=== PATIENT | female | born 1945 | race Caucasian/White ===

== ENCOUNTER → 2023-07-27 07:24 | Outpatient (REF) | payer MEDICARE, OTHER, SELFPAY | LOC: RAD 07:24 | PROVIDERS: ATTENDING PHYSICIAN Internal Medicine Endocrinology, Diabetes & Metabolism; FAMILY PHYSICIAN Internal Medicine | DX: E04.2 Nontoxic multinodular goiter (principal) | CPT/HCPCS: 78014; A9516 ==

== ENCOUNTER 2023-08-19 09:36 | Emergency (ER) | payer MEDICARE, OTHER, SELFPAY ==
[2023-08-19 09:48] VITALS: BP 181/92
--- NOTE | 2023-08-19 10:11 | ED.GENMED ---
History of Present Illness
General
Chief Complaint: Fall
Source: patient and family
Exam Limitations: none
Time Seen by Provider: 08/19/23 10:00
Nursing documentation reviewed up to this point in time: agreed with
Travel History
Have you had any contact with someone who has COVID-19?: No
Do you have any symptoms of coronavirus? Fever > 100 degrees, chills, cough, shortness of breath, sore throat, loss of taste or smell, muscle aches, or headache?: No
History of Present Illness
History of Present Illness:
77-year-old female presents to the emergency department after tripping and falling onto her forehead/nose yesterday evening. She sustained a small laceration to her nose and had some swelling underneath both eyes.
Past History
Past History
ED Past Medical History: HTN, Hypercholesterolemia, NIDDM and Other (sleep apnea, neck pain, dizziness, chronic cough, arthritis)
ED Past Surgical History: Other (noncontributory)
Social History
Tobacco: Non-smoker
Alcohol: None
Drug: None
Living: alone
Employment: Retired
Review of Systems
Review of Systems
Allergies reviewed?: Yes
All Other Systems: Not applicable
Constitutional: Reports no symptoms
EENT: Reports other (Facial swelling)
Respiratory: Reports no symptoms
Cardiac: Reports no symptoms
ABD/GI: Reports no symptoms
: Reports no symptoms
Musculoskeletal: Reports no symptoms
Skin: Reports no symptoms
Neurological: Reports no symptoms
Endocrine: Reports no symptoms
Hematologic/Lymphatic: Reports no symptoms
Psychiatric: Reports no symptoms
Phy Exam
Physical Exam
Physical Exam:
Physical Exam
General: no apparent distress, not acutely ill
Neck: supple. no meningeal signs. normal posterior pharynx
Heart: s1/s2 regular rate and rhythm, no murmur. equal radial
pulses.
HEENT: Pupils equal round reactive to light, EOMI, laceration 0.5 cm, mid nose. Swelling under bilateral eyes,
Lungs: no acute respiratory distress. clear bilaterally
Abdomen: normal bowel sounds. not tender. no CVAT
Neuro: alert and oriented. no focal neurological deficits cranial nerves II through XII intact. Ambulates without difficulty
Skin: no rash
Psychiatric: well kept. interactive and cooperative
Extremities: no edema. no calf tenderness. negative homans. good distal pulses
Course
Orders/Labs/Results
Orders:
Orders
08/19/23 10:10
CT Facial Bones W/o Iv Contras Urgent
Comment:
Reason For Exam: fall, hit face, nasal swelling, swelling under eye
CT Head W/o Iv Contrast Urgent
Comment:
Reason For Exam: fall yesterday, hit face
Tetanus/Diphth/Acelpertussis [Adacel] 0.5 ml IM .ONCE ONE
Vital Signs
Initial and Last Documented VS:
Initial Vital Signs
Temp Pulse Resp BP Pulse Ox
98.0 F 71 16 181/92 98
08/19/23 09:48 08/19/23 09:48 08/19/23 09:48 08/19/23 09:48 08/19/23 09:48
Last Documented Vital Signs
Temp Pulse Resp BP Pulse Ox
98.0 F 71 16 181/92 98
08/19/23 09:48 08/19/23 09:48 08/19/23 09:48 08/19/23 09:48 08/19/23 09:48
Procedures
Laceration Closure
Middle Nose:
Status of Wound: clean and other (Scabbed)
Size of Wound in cm: 0.5
Description of Wound Edges: surrounded by abrasion
Preparation: cleaned with saline
Revision/Debridement: routine- no revision
Type of Closure: Dermabond-skin glue
MDM/Problems Addressed
Differential Diagnosis Includes:
intracranial hemorrhage, nasal fracture
MDM/Problems Addressed:
77 yo female with nasal fracture, nasal laceration.
Chronic conditions affecting care: HTN
Acute Exacerbation and/or Progression of Chronic Illness: HTN
*Radiology
Radiology exam reviewed: radiology read reviewed (CT head and face shows nasal fracture nondisplaced)
*Pulse Oximetry
Patient hypoxic: no
*EKG
Interpreted by ED Provider?: NA
*Press Machine Operator Interpretation
Rate: Press Machine Operator- N/A
*Critical Care Note
Total Time (30-74mins, 75-104mins- exclusive of procedures): Not Applicable
Patient Management
Social determinants of health affecting care: Living situation
Escalation/DeEscalation of care consider admission/obs:
admit not indicated
ED Attending Note
-
Portions of this chart may have been created with voice recognition software.� Occasional wrong word or��sound alike� substitutions may have occurred due to the inherent limitations of voice recognition software.
Discharge Plan
Departure
Patient Disposition: Home (Routine Discharge)
Date of Disposition: 08/19/23
Time of Disposition: 12:47
Patient with high blood pressure during this ER visit?: Yes
Condition: Good
Discharge Problem:
Fracture closed, nasal bone, Laceration of nose
Instructions: Laceration Repair With Glue (DC), Preventing falls in adults, Nose Fracture ED, BLOOD PRESSURE
Prescriptions:
No Action
paroxetine HCl 20 MG tablet
20 mg PO DAILY
metformin 500 MG tablet
500 mg PO BID
Cyanocobalamin (Vitamin B-12) Injection
1 dose IM MONTHLY
atorvastatin 10 MG tablet
20 mg PO QPM 0RF
losartan 50 MG tablet
50 mg PO DAILY Qty: 0 0RF
Rx Instructions:
hold systolic blood pressure <130
aspirin [Aspir-Low] 81 MG tablet,delayed release (DR/EC)
81 mg PO DAILY
Referrals:
Sena Dan MD [Family Provider] -
Jefry Tse MD [Active] - Call in 1-3 days for appt
Interventions
Interventions:
*ED COVID-19 Vaccine History Last Done: 08/19/23 09:48
[2023-08-19 11:01] VITALS: BP 165/85
[2023-08-19 12:00] VITALS: BP 175/91
[2023-08-19 13:00] VITALS: BP 169/75
[2023-08-19] MEDS: ADACEL 0.5 ML IM (13:44)
== END 2023-08-19 13:56 | disposition home or self-care (01) ==
LOC: EMR 09:36
PROVIDERS: EMERGENCY PHYSICIAN Emergency Medicine; FAMILY PHYSICIAN Family Medicine
DX: S02.2XXA Fracture of nasal bones, initial encounter for closed fracture (principal); S01.21XA Laceration without foreign body of nose, initial encounter; W18.09XA Striking against other object with subsequent fall, initial encounter; Y93.89 Activity, other specified; I10 Essential (primary) hypertension; E11.9 Type 2 diabetes mellitus without complications; E78.00 Pure hypercholesterolemia, unspecified; G47.30 Sleep apnea, unspecified; M19.90 Unspecified osteoarthritis, unspecified site; R05.3 Chronic cough; Z88.5 Allergy status to narcotic agent; Z91.048 Other nonmedicinal substance allergy status
CPT/HCPCS: 99284; 90471; 12011; 70450; 70486; 90715

== ENCOUNTER → 2023-12-24 10:15 | Outpatient (REF) | payer MEDICARE, OTHER, SELFPAY ==
[2023-12-24 12:06] LABS: Glycohemoglobin (HgbA1c) 5.3 % (4.0-5.6)
[2023-12-24 12:18] LABS: ALT (SGPT) 18 U/L (0-35); AST (SGOT) 28 U/L (14-36); Albumin 4.6 g/dl (3.5-5.0); Alkaline Phosphatase 89 U/L (38-126); Blood Urea Nitrogen 17 mg/dl (7-17); Calcium 10.1 mg/dl (8.4-10.2); Carbon Dioxide 27 mmol/L (22-30); Chloride 104 mmol/L (98-107); Glucose 92 mg/dl (70-99); HDL Cholesterol 62 mg/dl; LDL Cholesterol, Calculated 77 mg/dl; Sodium 140 mmol/L (135-145); Total Bilirubin 0.8 mg/dl (0.2-1.3); Total Cholesterol 156 mg/dl (50-199); Total Protein 7.2 g/dl (6.3-8.2); Triglyceride 89 mg/dl (10-149); Very Low Density Lipoprotein 17 mg/dl (0-30); eGFR 42.09
[2023-12-24 12:25] LABS: Potassium 4.9 mmol/L (3.5-5.1)
== END ==
LOC: WDC 10:15
PROVIDERS: ATTENDING PHYSICIAN Internal Medicine
DX: Z12.31 Encounter for screening mammogram for malignant neoplasm of breast (principal); R29.890 Loss of height; E11.9 Type 2 diabetes mellitus without complications; I10 Essential (primary) hypertension; E78.00 Pure hypercholesterolemia, unspecified; Z78.0 Asymptomatic menopausal state
CPT/HCPCS: 36415; 77080; 80053; 80061; 83036

== ENCOUNTER → 2024-02-18 09:09 | Outpatient (REF) | payer MEDICARE, OTHER, SELFPAY | LOC: WDC 09:09 | PROVIDERS: ATTENDING PHYSICIAN Internal Medicine | DX: N63.10 Unspecified lump in the right breast, unspecified quadrant (principal); N63.13 Unspecified lump in the right breast, lower outer quadrant | CPT/HCPCS: 76642; 77062; 77066 ==

== ENCOUNTER → 2024-02-24 12:13 | Outpatient (REF) | payer MEDICARE, OTHER, SELFPAY ==
--- NOTE | 2024-02-24 14:55 | OID.BR.INTR ---
KATTYD Breast Navigator - Initial
- -
Date of Contact: 02/24/24
Met with patient. Patient given written information on navigator services available at [facility]. Will follow up as needed per protocol.
== END ==
LOC: WDC 12:13
PROVIDERS: ATTENDING PHYSICIAN Internal Medicine
DX: N63.13 Unspecified lump in the right breast, lower outer quadrant (principal)
CPT/HCPCS: 88305; 19000; 19083; 76942; 88112

== ENCOUNTER → 2024-05-05 11:00 | Outpatient (REF) | payer MEDICARE, OTHER, SELFPAY | LOC: RCS 11:00 | PROVIDERS: ATTENDING PHYSICIAN Internal Medicine; FAMILY PHYSICIAN Internal Medicine | DX: R09.89 Other specified symptoms and signs involving the circulatory and respiratory systems (principal) | CPT/HCPCS: 93306 ==

== ENCOUNTER → 2024-06-21 10:12 | Outpatient (REF) | payer MEDICARE, OTHER, SELFPAY ==
[2024-06-21 11:11] LABS: Hematocrit 38.4 % (37.0-47.0); Hemoglobin 12.7 g/dL (12.0-16.0); Mean Corp Hgb Conc. 33.1 g/dL (33.0-37.0); Mean Corpuscular Hgb 33.3 pg (27.0-31.0); Mean Corpuscular Volume 100.8 fL (81.0-99.0); Mean Platelet Volume 10.7 fL (7.4-10.4); Platelet Count 203 10^3/uL (130-400); Red Blood Cell Count 3.81 10^6/uL (4.20-5.40); Red Cell Dist. Width 14.4 % (11.5-14.5); White Blood Cell Count 5.6 10^3/uL (4.8-10.8)
[2024-06-21 11:37] LABS: ALT (SGPT) 14 U/L (0-35); AST (SGOT) 20 U/L (14-36); Albumin 4.6 g/dl (3.5-5.0); Alkaline Phosphatase 79 U/L (38-126); Blood Urea Nitrogen 18 mg/dl (7-17); Calcium 9.6 mg/dl (8.4-10.2); Carbon Dioxide 32 mmol/L (22-30); Chloride 101 mmol/L (98-107); Glucose 102 mg/dl (70-99); Potassium 4.7 mmol/L (3.5-5.1); Sodium 141 mmol/L (135-145); Total Bilirubin 0.7 mg/dl (0.2-1.3); Total Protein 7.5 g/dl (6.3-8.2); eGFR 46.33
[2024-06-21 11:57] LABS: Free T3 3.15 pg/ml (2.77-5.27); Free T4 0.74 ng/dl (0.78-2.19)
[2024-06-21 12:11] LABS: TSH 2.96 uIU/ml (0.47-4.68)
== END ==
LOC: RAD 10:12
PROVIDERS: ATTENDING PHYSICIAN Internal Medicine Endocrinology, Diabetes & Metabolism; FAMILY PHYSICIAN Internal Medicine
DX: E04.2 Nontoxic multinodular goiter (principal); R55 Syncope and collapse
CPT/HCPCS: 36415; 76536; 80053; 84439; 84443; 84481; 85027

== ENCOUNTER 2024-11-26 15:53 | Inpatient (IN) | payer MEDICARE, OTHER, SELFPAY ==
[2024-11-26 12:34] VITALS: BP 162/88
[2024-11-26 13:04] VITALS: BMI 23.5
[2024-11-26] MEDS: ZOSYN 50 IV (14:13)
[2024-11-26 14:29] LABS: Hematocrit 34.6 % (37.0-47.0); Hemoglobin 11.5 g/dL (12.0-16.0); Mean Corp Hgb Conc. 33.2 g/dL (33.0-37.0); Mean Corpuscular Volume 99.1 fL (81.0-99.0); Nucleated Red Blood Cells % 0 %; Platelet Count 252 10^3/uL (130-400); Red Cell Dist. Width 14.4 % (11.5-14.5)
[2024-11-26 14:32] LABS: Blood Urea Nitrogen 22 mg/dl (7-17); Calcium 9.9 mg/dl (8.4-10.2); Carbon Dioxide 24 mmol/L (22-30); Chloride 109 mmol/L (98-107); Estimated Creatinine Clearance 42 ml/min; Glucose 87 mg/dl (70-99); Potassium 4.7 mmol/L (3.5-5.1); Sodium 143 mmol/L (135-145); eGFR 46.33
[2024-11-26 14:36] LABS: C-Reactive Protein 8.80 mg/L (0.0-10.00)
--- NOTE | 2024-11-26 14:39 | ED.GENMED ---
History of Present Illness
General
Chief Complaint: Extremity Pain (non-traumatic)
Source: patient
Time Seen by Provider: 11/26/24 13:25
History of Present Illness
History of Present Illness:
78-year-old female with past medical history of hypertension, bqg-uvflrmb-yexrcvhis diabetes presenting to the emergency department for evaluation of suspected infection to the left hand following a cat bite 2 weeks ago, patient already completed a
10-day course of Augmentin and while this did slightly improved she still had swelling and pain between the third and. Patient went to [facility] yesterday where she had additional blood work and CT scan done which reportedly showed 'an
infection within the joint' but patient ultimately left AGAINST MEDICAL ADVICE for unclear reasons. Patient presented back today due to the continued pain. Denies any fevers, chills or rigors no longer vomiting. Patient is making vomit. No other
injuries were sustained. This is up-to-date. Patient was bit by her own house cat.
Past History
Past History
ED Past Medical History: HTN, Hypercholesterolemia, NIDDM and Other (sleep apnea, neck pain, dizziness, chronic cough, arthritis)
ED Past Surgical History: Other (noncontributory)
Social History
Tobacco: Non-smoker
Alcohol: None
Drug: None
Personal: Single
Living: alone
Employment: Retired
Phy Exam
Physical Exam
Physical Exam:
GENERAL: Alert , in no apparent distress
EYE: conjunctiva clear
Head: Normocephalic atraumatic
NECK: Supple,
ENT: mmm.
LUNGS: no acute respiratory distress
NEUROLOGICAL: Alert and oriented
SKIN: Warm and dry, there is mild to moderate edema and soft tissue of the dorsal aspect of the left hand between the 3rd and 4th metacarpal with erythema overlying and tenderness as well as increased warmth. no lymphangitis
MUSCULOSKELETAL: well perfused.
PSYCH: Normal and appropriate interaction.
Course
Orders/Labs/Results
Orders:
Orders
11/26/24 13:58
Piperacillin/Tazo 3.375 Gram [Zosyn] 3.375 gram in 50 ml IV NOW
11/26/24 14:09
Basic Metabolic Panel Urgent
CRP [C-Reactive Protein] Urgent
Complete Blood Count/With Diff Urgent
ESR [Erythrocyte Sed Rate] Urgent
11/26/24 15:33
Admit/Transfer Patient As Directed
Co-Sign Provider:
Level of Care: Inpatient admission
Assign to:: Medical/Surgical
Physician / Group: Ed Moe
Diagnosis: cellulitis of left hand 2/2 cat bite
Reason for Hospitalization: cellulitis of left hand 2/2 cat bite
Expected length of stay greater than two midnights?: Yes
ELOS- Estimated Length of Stay in days: 2
I certify the patient meets the requirements for IP care: Yes
PRN Pain Medication Management As Directed
May give lesser potent ordered pain med per pt: Yes
preference::
Protocol:: Medication orders for pain may be administered in a
manner that supports deferring to patient preference
when the pt is:
- Requesting an ordered lesser potent pain medication.
Least to most potent pain medications are defined
as: acetaminophen < NSAID < tramadol < opioids
(morphine, oxycodone, hydromorphone).
- Requesting a lesser dose of the same medication IF
ORDERED.
- Requesting a less intrusive route of administration
if both routes are prescribed by the provider (PO <
IV).
11/26/24 15:35
Code Status As Directed
Resuscitation Status: Full Code
Abnormal Lab Results
11/26/24
14:09
RBC 3.49 L 10^6/uL
(4.20-5.40)
Hgb 11.5 L g/dL
(12.0-16.0)
Hct 34.6 L %
(37.0-47.0)
MCV 99.1 H fL
(81.0-99.0)
MCH 33.0 H pg
(27.0-31.0)
MPV 10.7 H fL
(7.4-10.4)
Lymphocytes % 18.9 L %
(20.5-51.1)
ESR 24 H mm/hour
(0-20)
Chloride 109 H mmol/L
(98-107)
BUN 22 H mg/dl
(7-17)
Creatinine 1.2 H mg/dL
(0.6-1.0)
11/26/24 14:09
11/26/24 14:09
Vital Signs
Initial and Last Documented VS:
Initial Vital Signs
Temp Pulse Resp BP Pulse Ox
98.5 F 77 18 162/88 98
11/26/24 12:34 11/26/24 12:34 11/26/24 12:34 11/26/24 12:34 11/26/24 12:34
Last Documented Vital Signs
Temp Pulse Resp BP Pulse Ox
98.5 F 77 18 162/88 98
11/26/24 12:34 11/26/24 12:34 11/26/24 12:34 11/26/24 12:34 11/26/24 14:47
MDM/Problems Addressed
Differential Diagnosis Includes:
- Cellulitis
- Abscess
- Tenosynovitis
- Necrotizing Fasciitis
- No concern for fracture
MDM/Problems Addressed:
78-year-old female presented to ER for evaluation following accidental cat bite from approximately 2 weeks. The day course of Augmentin. Went to [facility] emergency room yesterday and was told she had an infection within the joint space, left
AMA. Based off CT scan report as well as presenting symptoms I discussed patient with echo if needed treating his antibiotics and like consultation from orthopedics, may need to take the OR for washout. Initiate IV Lasix here, consult with
orthopedics and attempt to obtain the CT scan treatment yesterday.
*Pulse Oximetry
SaO2: 98
Oxygen Mode of Delivery: Room air
Patient hypoxic: no
*Critical Care Note
Total Time (30-74mins, 75-104mins- exclusive of procedures): Not Applicable
Patient Management
Discussion with other providers: Hospitalist and Cigar Tobacco Rehandler
Escalation/DeEscalation of care consider admission/obs:
Received records from [facility] about patient's CT scan which showed a rim-enhancing fluid collection around the distal fourth metacarpal head which coincides with the area where patient is having her pain and swelling. Hospitalist team was
notified and accepts for continued evaluation and treatment. I did also notify orthopedics so they can consult and see the patient to determine if this is something that he needs to go to the OR for debridement and washout.
ED Attending Note
-
Portions of this chart may have been created with voice recognition software.� Occasional wrong word or��sound alike� substitutions may have occurred due to the inherent limitations of voice recognition software.
Discharge Plan
Departure
Patient Disposition: Admit
Date of Disposition: 11/26/24
Time of Disposition: 14:49
Presentation/result/management discussed w/ accepting MD/DO: Hospitalist
Discharge Problem:
Cellulitis of hand, left, Cat bite
Interventions
Interventions:
*Risk Screen - Suicide Last Done: 11/26/24 12:34
*General Assessment Last Done: 11/26/24 12:59
*Neglect/Abuse Screening Last Done: 11/26/24 12:34
*ED- Fall Risk Assessment Last Done: 11/26/24 12:59
*ED COVID-19 Vaccine History Last Done: 11/26/24 12:59
ED-Musculoskeletal Assessment Last Done: 11/26/24 14:00
ED-Peripheral Vascular Assessment Last Done: 11/26/24 14:00
ED-Skin Assessment Last Done: 11/26/24 14:00
--- NOTE | 2024-11-26 15:00 | HPS.HSE ---
Family Physician
-
Family Physician: Sena Avilez
Chief Complaint
-
cat bite
History of Present Illness
Patient is a 78-year-old female with past medical history significant for hypertension, hyperlipidemia, DM II, CKD IIIa and anxiety/depression who presents to [facility] ED for evaluation of cat bite to left hand. Patient reports having had a cat bite to
left had on November 13, she was treated with 10-day course of Augmentin with what she describes as significant improvement, but not completely improved. Patient complains of mild discomfort and swelling to dorsal left hand, proximal phalanges on 3rd
- 5th digits. Denies any fever, chills, shortness of breath, chest pain, nausea, vomiting or diarrhea.
Medical History
Past Medical History
Past Medical History: Reports Other
Additional Past Medical History:
hypertension
hyperlipidemia
DM II
CKD IIIa
anxiety/depression
Past Surgical History: Reports Other
Additional Past Surgical History:
cardiac catheterization
molar extraction(2016) 06/04/2016
back surgery(1983) 09/03/2007
rt knee replacement(2002) 09/03/2007
Tonsillectomy() 09/03/2007
Bilateral TKA() 11/11/2016
Bilateral shoulder replacement() 11/11/2016
Cervical disc surgery() 11/11/2016
cataract surg
Revision of Right TKR (DOS 03/29/2019) [facility] Dr. Stein 03/2019
Social History
Tobacco: Former Smoker
Alcohol: Daily (1-3 glasses of wine daily )
Drug: None
Living: Alone
Employment: Retired
Family History
Family History: Not pertinent
Allergies / Home Medications
Allergies reflects when Allergies were last updated in [employer].
Home Medications with original date entered in [employer]
Allergy/Medication List:
Allergies
Allergy/AdvReac Type Severity Reaction Status Date / Time
morphine Allergy passed Verified 11/26/24 12:34
out, 'went
blank'-
Deep
Sedation
seasonal Allergy sneezing, Uncoded 11/26/24 12:34
watery
eyes,
runny nose
Home Medications
paroxetine HCl 20 mg tablet 20 mg PO DAILY 08/23/09
metformin 500 mg tablet 500 mg PO DAILY 01/08/16
cyanocobalamin (vitamin B-12) 1,000 mcg/mL injection solution 1,000 mcg IM QMONTH ##0 03/04/19
losartan 50 mg tablet 50 mg PO DAILY ##0 03/30/19
aspirin 81 mg tablet,delayed release 81 mg PO DAILY 11/26/24
atorvastatin 20 mg tablet (Lipitor) 20 mg PO DAILY 11/26/24
azithromycin 250 mg tablet 0 mg PO .COMPLEX 11/26/24
cholecalciferol (vitamin D3) 25 mcg (1,000 unit) tablet (Vitamin D3) 25 mcg PO DAILY 11/26/24
vitamins A,C,T-gfbm-kpkhta 2,148 mcg-113 mg-45 mg-17.4 mg tablet (PreserVision AREDS) 1 tab PO BID 11/26/24
Review of Systems
-
History Source: Patient
Musculoskeletal: Reports Other (mild discomfort and swelling to dorsal left hand, proximal phalanges on 3rd - 5th digits)
Physical Exam
Vital Signs
Vital Signs
Temp Pulse Resp BP Pulse Ox
98.5 F 77 18 162/88 98
11/26/24 12:34 11/26/24 12:34 11/26/24 12:34 11/26/24 12:34 11/26/24 14:47
Physical Exam
General: Well Developed, Well Nourished, No Apparent Distress, Comfortable and Conversant
HEENT: NormoCephalic, Moist mucous membranes, Atraumatic, Nose Appears Normal and Ears Appear Normal
Respiratory: Clear
Cardiac: S1/S2 and Regular Rhythm
GI: Soft, Non Tender, Non Distended and Normal Bowel Sounds
Musculoskeletal: No Clubbing, No Cyanosis and Other (mild discomfort and swelling to dorsal left hand, proximal phalanges on 3rd - 5th digits)
Skin: IV/Catheter Site
Neuro: Awake, AO x 3 and Nonfocal/grossly intact
Psych: Calm and Intact Judgment/Insight
Laboratory Results
-
11/26/24 14:09
11/26/24 14:09
Data Reviewed
-
Lab Data: Labs Reviewed by me (BUN 22, Creat 1.2, est CrCl 42, eGFR 46.33)
Impression/Plan
-
IMPRESSION/PLAN:
#cellulitis of left hand 2/2 cat bite
mild discomfort and swelling to dorsal left hand, proximal phalanges on 3rd - 5th digits
Cat bite on November 13, 2024, completed 10-day course of Augmentin
Left UE CT: Edema along the dorsum of the hand without focal fluid collection
Small rim-enhancing fluid collection surrounding the distal fourth metacarpophalangeal joint.
No acute osseous destructive process identified.
An infected joint effusion not excluded.
Diffuse wrist/carpal degenerative change.
- Admit to Med/Surg
- Consult ortho
- IV Unasyn
- supportive care
#hypertension
- continue losartan
#hyperlipidemia
- continue aspirin and atorvastatin
#DM II
- continue metformin
#CKD IIIa
BUN 22, Creat 1.2, est CrCl 42, eGFR 46.33
appears to be patients baseline
- monitor BMP
#anxiety/depression
- continue paroxetine
Code status: full code
DVT prophylaxis: Lovenox sq
--- NOTE | 2024-11-26 15:32 | W.PN.UPDATE ---
Update Note
Progress Note Update
This is an addendum to H&P written by Nathalia Weaver on 11/26/2024. �Patient seen and examined independently with SEAM RUBBING MACHINE OPERATOR.
78-year-old female with past medical history of hypertension, hyperlipidemia, diabetes, CKD 3, anxiety/depression, presenting with cat bite from her own cat 2 weeks ago status post 10-day course of Augmentin with significant improvement but
continued swelling and pain of the hand. �No fevers or chills.
Labs unremarkable.
She went to [facility] yesterday and had CT scan done which showed edema along the dorsum of the hand without focal fluid collection. �Small rim-enhancing fluid collections around the distal fourth metacarpal head and proximity to the
metacarpophalangeal joint. �No acute osseous destructive process identified. �She left A due to frustration waiting.
Concern for residual cellulitis of the left hand with fluid collection/abscess around the distal fourth metacarpal head. �Unasyn, Ortho consulted.
[2024-11-26 16:01] VITALS: BP 184/93
[2024-11-26 16:31] VITALS: BMI 22.1
[2024-11-26 16:44] VITALS: BP 181/88
--- NOTE | 2024-11-26 17:16 | PTCARENOTE ---
rec'd pt from ER. walked from bed to stretcher. Denies pain at the moment. left hand is swollen with scabs. oriented to room. call martínez in reach.
[2024-11-26] MEDS: LOVENOX 40 MG SC (20:06)
[2024-11-26] MEDS: UNASYN IV (20:15)
[2024-11-26 23:24] VITALS: BP 172/81
[2024-11-27] MEDS: UNASYN IV ×4 (02:29→20:32)
[2024-11-27 07:13] LABS: Hematocrit 34.5 % (37.0-47.0); Hemoglobin 11.4 g/dL (12.0-16.0); Mean Corp Hgb Conc. 33.0 g/dL (33.0-37.0); Mean Corpuscular Volume 98.6 fL (81.0-99.0); Platelet Count 244 10^3/uL (130-400); Red Cell Dist. Width 14.3 % (11.5-14.5)
[2024-11-27 07:38] VITALS: BP 195/105
[2024-11-27 07:40] LABS: Blood Urea Nitrogen 14 mg/dl (7-17); Calcium 9.4 mg/dl (8.4-10.2); Carbon Dioxide 22 mmol/L (22-30); Chloride 111 mmol/L (98-107); Estimated Creatinine Clearance 52 ml/min; Glucose 84 mg/dl (70-99); Potassium 4.5 mmol/L (3.5-5.1); Sodium 141 mmol/L (135-145); eGFR 57.66
[2024-11-27] MEDS: VITAMIN D3 (cholecalciferol) 25 MCG PO (07:44)
[2024-11-27] MEDS: LIPITOR 20 MG PO (07:44)
[2024-11-27] MEDS: COZAAR 50 MG PO (07:44)
[2024-11-27] MEDS: GLUCOPHAGE 500 MG PO (07:44)
[2024-11-27] MEDS: ASPIR LOW (ENTERIC COATED) 81 MG PO (07:44)
[2024-11-27] MEDS: PAXIL 20 MG PO (07:45)
--- NOTE | 2024-11-27 08:20 | CON.ORTHO ---
Consultation
-
Date/Time Consultation Requested: 11/26/2024; time unknown
Date/Time Consultation Performed: 11/27/2024; 0815
Requesting Provider: Tonny Jean Baptiste
Performing Provider: Sugey Lundberg PA-C
Reason for Consultation: Left hand cat scratch injury
Consultation - Orthopedics
History
Ms. Fenton is a 78 year old female with PMH of hypertension, hyperlipidemia, DM II, CKD IIIa and anxiety/depression. She is seen today for her left hand. She reports 2 weeks ago one of her pet cats got out, and when she caught her, the cat
scratched her left hand. She reports onset of swelling about the dorsal aspect of her hand following the incident. She was evaluated initially by her PCP who prescribed a 10 day course of Augmentin. When she completed the antibiotic at the end of
last week, she reports swelling and redness about the area returned. Her PCP recommended she go to the ED. She presented initially to [facility] where she did receive IV antibiotics, and a CT scan was performed on her left hand. She left AMA because
things were taking too long and she was tired of waiting. She endorses tenderness primarily about her fourth MCP joint.
Of note, she does report a history of several cat bite injuries in the past which were treated with IV antibiotics.
Allergies / Home Medications
Allergy/AdvReac Type Severity Reaction Status Date / Time
morphine Allergy passed Verified 11/26/24 12:34
out, 'went
blank'-
Deep
Sedation
seasonal Allergy sneezing, Uncoded 11/26/24 12:34
watery
eyes,
runny nose
�Medication �Instructions �Recorded
paroxetine HCl 20 mg tablet 20 mg PO DAILY 08/23/09
metformin 500 mg tablet 500 mg PO DAILY 01/08/16
cyanocobalamin (vitamin B-12) 1,000 mcg IM QMONTH ##0 03/04/19
1,000 mcg/mL injection solution
losartan 50 mg tablet 50 mg PO DAILY ##0 03/30/19
aspirin 81 mg tablet,delayed 81 mg PO DAILY 11/26/24
release
atorvastatin 20 mg tablet (Lipitor) 20 mg PO DAILY 11/26/24
azithromycin 250 mg tablet 0 mg PO .COMPLEX 11/26/24
cholecalciferol (vitamin D3) 25 25 mcg PO DAILY 11/26/24
mcg (1,000 unit) tablet (Vitamin
D3)
vitamins A,C,E-bcbz-ysfijy 2,148 1 tab PO BID 11/26/24
mcg-113 mg-45 mg-17.4 mg tablet
(PreserVision AREDS)
Vital Signs / Lab Results
Temp Pulse Resp BP Pulse Ox
97.5 F 66 18 195/105 96
11/27/24 07:38 11/27/24 07:44 11/27/24 07:38 11/27/24 07:44 11/27/24 07:38
11/27/24 06:40
11/27/24 06:[address]
CT scan [facility] 11/25/2024 impression:
>Edema along the dorsum of the hand without focal fluid collection.
>Small rim-enhancing fluid collection surrounding the distal fourth metacarpal head, close pectinate to the metacarpal phalangeal joint.
> No acute osseous destructive process identified.
> Infected joint effusion not excluded.
> Diffuse/carpal degenerative change.
ESR 24, CRP WNL.
Directed exam of the left hand reveals hue of erythema overlying the dorsum of the left hand. No erythema tracking proximally. Generalized edema about the dorsum of the hand, and ring finger. Mildly in the middle and small fingers. Tenderness to
palpation overlying the fourth metacarpal head. No tenderness elsewhere in the ring finger or hand. Good ROM of 1st-3rd and 5th fingers. Stiffness with ROM of the ring finger. No significant pain with ROM isolated to the 4th MCP joint. Discomfort
with passive extension of the ring finger. Sensation intact to light touch. Capillary refill <2 seconds.
Assessment / Plan
Left hand cellulitis s/p cat scratch injury
--Paola developed cellulitis about her left hand following a cat scratch injury at home [address] scan revealed a small rim-enhancing collection around her fourth metacarpal head. On exam today, she does not have pain with isolated movement
of her fourth MCP joint, and I am not overly concerned for septic joint. I do not believe surgical intervention is indicated at this point. That being said, we will continue to follow her closely, and should her symptoms continue to worsen with time
despite treatment with antibiotics, surgical intervention may be indicated.
--Continue IV antibiotics. Currently Unasyn.
--May perform gentle ROM of her wrist and hand as tolerated.
--Pain control prn.
--Orthopedics will continue to follow along. Recommend outpatient follow up for continued monitoring following discharge.
--- NOTE | 2024-11-27 10:48 | W.PN.HOSP.TC ---
Today's Communication/Plan
-
see plan
Assessment / Plan
Assessment / Plan
Gen: NAD, AAOx3.
Eyes: EOMI, PERRLA, no scleral icterus.
Neck: supple.
CV: RRR, +S1/S2, no m/r/g.
Resp: CTAB, no rales, wheezes, or rhonchi.
Abd: +BS, soft, NT, ND
Skin: No rashes. The soft tissue about the left fourth metacarpal head (on the dorsal and palmar aspects) is moderately edematous. It is tender to palpation. No erythema or warmth.
Neuro: CN 2-12 intact, non-focal.
Psych: Normal mood and affect.
Left UE CT (at [facility]) 11/25/24: Edema along the dorsum of the hand without focal fluid collection
Small rim-enhancing fluid collection surrounding the distal fourth metacarpophalangeal joint.
No acute osseous destructive process identified.
An infected joint effusion not excluded.
Diffuse wrist/carpal degenerative change.
L hand cellulitis due to cat bite:
-s/p cat bite on 11/13/24, completed 10-day course of Augmentin
-LUE CT above at [facility], left [facility] ER AMA
-cont Unasyn
-ortho following, no surgical intervention indicated at this moment
Other problems:
Essential hypertension: cont ARB
Hyperlipidemia: cont statin
DM2: cont Metformin, SSI/accuchecks
CKD3a
Anxiety/Depression: cont Paxil
FULL/Lovenox
Anticipated Discharge: 24 - 48 hours
Subjective/Interval History
-
Date of Service: November 27, 2024
No new complaints.
Objective Data
-
Labs:
Laboratory Results
11/27/24
06:40
WBC 4.9
Hgb 11.4 L
Hct 34.5 L
Plt Count 244
Sodium 141
Potassium 4.5
Chloride 111 H
Carbon Dioxide 22
BUN 14
Creatinine 1.0
Glucose 84
Calcium 9.4
Vital Signs:
Vital Signs
Temp Pulse Resp BP Pulse Ox
97.5 F 66 18 195/105 96
11/27/24 07:38 11/27/24 07:44 11/27/24 07:38 11/27/24 07:44 11/27/24 07:38
I&O
11/26/24 11/27/24 11/28/24
06:59 06:59 06:59
Intake Total 120 / 120
Balance 120 / 120
[2024-11-27 11:54] LABS: Glucose - Point of Care 107 mg/dl (70-99)
[2024-11-27] MEDS: NOVOLOG FLEXPEN-LOW RESISTANCE SC (11:55)
[2024-11-27 15:28] VITALS: BP 130/66
--- NOTE | 2024-11-27 15:46 | CM ---
Patient seen bedside, initial assessment completed. Patient is a 78-year-old female with past medical history significant for hypertension, hyperlipidemia, DM II, CKD IIIa and anxiety/depression who presents to [facility] ED for evaluation of cat bite to
left hand. Patient reports her finger is feeling better but not as mobile as she'd like.
Patient resides alone in a single story home, 2 steps to enter. Patient is independent in all areas. Patient has a RW and cane as needed but prefers the cane when she is feeling off balance. No other DME identified. No SNF hx, home PT in the past (2
years ago) arranged by [facility].
Address, point of contact and insurance verified
PCP: Sena Avilez
Pharmacy: [facility]
Plan: Home, no needs
[2024-11-27 16:49] LABS: Glucose - Point of Care 157 mg/dl (70-99)
[2024-11-27] MEDS: NOVOLOG FLEXPEN-LOW RESISTANCE 1 UNITS SC (16:52)
[2024-11-27] MEDS: LOVENOX 40 MG SC (17:07)
[2024-11-27 21:24] LABS: Glucose - Point of Care 180 mg/dl (70-99)
[2024-11-27 23:05] VITALS: BP 179/87
[2024-11-27 23:30] VITALS: BP 179/87
[2024-11-28] MEDS: UNASYN IV ×4 (02:21→20:26)
[2024-11-28 07:00] VITALS: BP 197/92
--- NOTE | 2024-11-28 07:32 | W.PN.HOSP.TC ---
Addendum entered and electronically signed by Jesse Rangel MD 11/28/24 16:11:
Patient's blood pressure is very high, almost ~200 mmHg systolic this morning. Patient reports having hypertensive emergency in the past. Need to have better blood pressure control prior to discharge. Discussed with patient who is in agreement with
management plan. Added Amlodipine 5 mg BID and if blood pressure shows improvement overnight into tomorrow morning, patient will be okay for discharge.
Original Note:
Today's Communication/Plan
-
Discharge today
Assessment / Plan
Assessment / Plan
Gen: NAD, AAOx3.
Eyes: EOMI, no scleral icterus.
Neck: supple.
CV: RRR, +S1/S2, no m/r/g.
Resp: CTAB, no rales, wheezes, or rhonchi.
Abd: +BS, soft, NT, ND
Skin: Warm. Dry. The soft tissue about the left fourth metacarpal head (on the dorsal and palmar aspects) is moderately edematous. It is tender to palpation. No erythema or warmth.
Neuro: CN 2-12 intact, non-focal.
Psych: Normal mood and affect.
Left UE CT (at [facility]) 11/25/24: Edema along the dorsum of the hand without focal fluid collection
Small rim-enhancing fluid collection surrounding the distal fourth metacarpophalangeal joint.
No acute osseous destructive process identified.
An infected joint effusion not excluded.
Diffuse wrist/carpal degenerative change.
Left hand cellulitis due to cat bite:
-s/p cat bite on 11/13/24, completed 10-day course of Augmentin
-LUE CT above at [facility], left [facility] ER AMA
-Continue Unasyn --> on discharge, will do Augmentin for another 7 days
-Orthopedics following, no surgical intervention indicated at this moment. I discussed with orthopedics team today and orthopedics team stated okay to discharge today patient on oral antibiotics.
-May perform gentle ROM of her wrist and hand as tolerated.
-Continue with ice and elevation as well, as needed.
Other problems:
Essential hypertension: continue ARB
Hyperlipidemia: continue statin
DM2: cont Metformin, SSI/accuchecks
CKD3a
Anxiety/Depression: cont Paxil
FULL/Lovenox
More than 30 minutes spent in discharge including
Final examination of the patient
Summarizing hospital stay
Instructions for continuing care to all relevant caregivers
Preparation of discharge records, prescriptions, and referral forms
Total time spent (in minutes): 36
Anticipated Discharge: Today
Subjective/Interval History
-
Date of Service: November 28, 2024
Patient was seen and examined. She reported that she is doing much better, and she also said she would like to go home today.
Objective Data
-
Labs:
Laboratory Results
11/28/24
06:00
WBC Pending
Hgb Pending
Hct Pending
Plt Count Pending
Sodium Pending
Potassium Pending
Chloride Pending
Carbon Dioxide Pending
BUN Pending
Creatinine Pending
Glucose Pending
Calcium Pending
Vital Signs:
Vital Signs
Temp Pulse Resp BP Pulse Ox
98.0 F 64 16 179/87 95
11/27/24 23:05 11/27/24 23:05 11/27/24 23:05 11/27/24 23:05 11/27/24 23:05
I&O
11/27/24 11/28/24 11/29/24
06:59 06:59 06:59
Intake Total 120 / 120 1140 / 1140
Balance 120 / 120 1140 / 1140
[2024-11-28 07:42] LABS: Glucose - Point of Care 106 mg/dl (70-99)
[2024-11-28 08:08] LABS: Hematocrit 35.2 % (37.0-47.0); Hemoglobin 11.9 g/dL (12.0-16.0); Mean Corp Hgb Conc. 33.8 g/dL (33.0-37.0); Mean Corpuscular Volume 97.8 fL (81.0-99.0); Platelet Count 246 10^3/uL (130-400); Red Cell Dist. Width 14.1 % (11.5-14.5)
[2024-11-28] MEDS: NOVOLOG FLEXPEN-LOW RESISTANCE SC ×3 (08:18→17:24)
[2024-11-28] MEDS: PAXIL 20 MG PO (08:20)
[2024-11-28] MEDS: VITAMIN D3 (cholecalciferol) 25 MCG PO (08:20)
[2024-11-28] MEDS: GLUCOPHAGE 500 MG PO (08:20)
[2024-11-28] MEDS: ASPIR LOW (ENTERIC COATED) 81 MG PO (08:20)
[2024-11-28] MEDS: LIPITOR 20 MG PO (08:20)
[2024-11-28] MEDS: COZAAR 50 MG PO (08:20)
[2024-11-28 08:40] LABS: Glycohemoglobin (HgbA1c) 5.2 % (4.0-5.6)
[2024-11-28 08:52] LABS: Blood Urea Nitrogen 13 mg/dl (7-17); Calcium 10.2 mg/dl (8.4-10.2); Carbon Dioxide 24 mmol/L (22-30); Chloride 111 mmol/L (98-107); Estimated Creatinine Clearance 52 ml/min; Glucose 107 mg/dl (70-99); Potassium 4.5 mmol/L (3.5-5.1); Sodium 142 mmol/L (135-145); eGFR 57.66
--- NOTE | 2024-11-28 09:12 | W.PN.UPDATE ---
Update Note
Progress Note Update
Patient doing much better this morning. Reports significant improvement in her left hand symptoms, even since yesterday. Still a bit stiff and swollen, but is comfortably able to range her wrist, hand, and fingers. Continue with IV ampicillin.
Continue treatment per the primary medical team, with anticipated discharge on po ABX. no surgical intervention indicated at this time. Continue with ice and elevation as well, as needed. Will continue to follow.
[2024-11-28 11:23] LABS: Glucose - Point of Care 97 mg/dl (70-99)
--- NOTE | 2024-11-28 11:50 | CM ---
Chart reviewed and patient is for discharge to home no needs when stable.
Plan; Home no needs.
[2024-11-28 15:00] VITALS: BP 152/81
[2024-11-28 17:08] LABS: Glucose - Point of Care 106 mg/dl (70-99)
[2024-11-28] MEDS: LOVENOX 40 MG SC (17:25)
[2024-11-28 20:25] VITALS: BP 156/105
[2024-11-28] MEDS: NORVASC 5 MG PO (20:25)
[2024-11-28 21:40] LABS: Glucose - Point of Care 94 mg/dl (70-99)
[2024-11-28 23:00] VITALS: BP 195/97
[2024-11-28 23:53] VITALS: BP 198/102
[2024-11-29] MEDS: APRESOLINE 5 MG IV ×2 (00:37→02:39)
[2024-11-29] MEDS: UNASYN IV ×2 (02:14→08:00)
[2024-11-29 02:21] VITALS: BP 177/94
[2024-11-29 06:33] VITALS: BP 168/103
--- NOTE | 2024-11-29 06:57 | W.PN.UPDATE ---
Update Note
Progress Note Update
Patient seen and evaluated by Orthopedic surgery on morning rounds. She continues to endorse gradual improvements; reports significant improvements since admission. Clinically, still a little stiff and swollen, but is comfortably able to range her
wrist, hand, and fingers. She is almost able to demonstrate a full composite fist. No erythema. Continue with IV Ampicillin. Continue treatment per the primary medical team, with anticipated discharge on PO ABX. No surgical intervention indicated at
this time. Continue with ice and elevation as well, as needed. Will continue to follow. Upon discharge, recommend follow-up as outpatient 3-5 days for continued monitoring.
--- NOTE | 2024-11-29 07:03 | PTCARENOTE ---
Manual BP at midnight was 198/102, HR 66, pt asymptomatic. [employer] notified and ordered 1x IV hydralazine 5mg. Automatic BP at 0230 s/p IV hydralazine was 177/94, HR 70. [employer] Sc[employer] notified, order for a second 1x dose of IV hydralazine
5mg placed and provided to pt. Repeat BP at 0600 was 168/103, HR 88. Pt remains asymptomatic.
[2024-11-29 07:30] VITALS: BP 149/90
[2024-11-29] MEDS: ASPIR LOW (ENTERIC COATED) 81 MG PO (08:00)
[2024-11-29] MEDS: NORVASC 5 MG PO (08:00)
[2024-11-29] MEDS: PAXIL 20 MG PO (08:00)
[2024-11-29] MEDS: GLUCOPHAGE 500 MG PO (08:00)
[2024-11-29] MEDS: COZAAR 50 MG PO (08:01)
[2024-11-29] MEDS: VITAMIN D3 (cholecalciferol) 25 MCG PO (08:01)
[2024-11-29] MEDS: LIPITOR 20 MG PO (08:01)
[2024-11-29] MEDS: NOVOLOG FLEXPEN-LOW RESISTANCE SC ×2 (08:10→11:51)
[2024-11-29 08:11] LABS: Glucose - Point of Care 104 mg/dl (70-99)
--- NOTE | 2024-11-29 10:54 | W.PN.HOSP.TC ---
Today's Communication/Plan
-
Discharge today
Assessment / Plan
Assessment / Plan
Gen: NAD, AAOx3.
Eyes: EOMI, no scleral icterus.
Neck: supple.
CV: RRR, +S1/S2, no m/r/g.
Resp: CTAB, no rales, wheezes, or rhonchi.
Abd: +BS, soft, NT, ND
Skin: Warm. Dry. The soft tissue about the left fourth metacarpal head (on the dorsal and palmar aspects) with mild edema. It is very mildly tender to palpation. No erythema or warmth.
Musculoskeletal: Left Hand: patient is able to comfortably range her wrist, hand, and fingers without pain.
Neuro: CN 2-12 intact, non-focal.
Psych: Normal mood and affect.
Left UE CT (at [facility]) 11/25/24: Edema along the dorsum of the hand without focal fluid collection
Small rim-enhancing fluid collection surrounding the distal fourth metacarpophalangeal joint.
No acute osseous destructive process identified.
An infected joint effusion not excluded.
Diffuse wrist/carpal degenerative change.
Left hand cellulitis due to cat bite:
-s/p cat bite on 11/13/24, completed 10-day course of Augmentin
-LUE CT above at [facility], left [facility] ER AMA
-Continue Unasyn --> on discharge, will do Augmentin for another 6 days
-Orthopedics following, no surgical intervention indicated at this moment. I discussed with orthopedics team today and orthopedics team stated okay to discharge today patient on oral antibiotics.
-May perform gentle ROM of her wrist and hand as tolerated.
-Continue with ice and elevation as well, as needed.
-After discharge, recommended follow-up as outpatient 3-5 days for continued monitoring.
Other problems:
Essential hypertension: continue ARB
Hyperlipidemia: continue statin
DM2: cont Metformin, SSI/accuchecks
CKD3a
Anxiety/Depression: cont Paxil
FULL/Lovenox
More than 30 minutes spent in discharge including
Final examination of the patient
Summarizing hospital stay
Instructions for continuing care to all relevant caregivers
Preparation of discharge records, prescriptions, and referral forms
Total time spent (in minutes): 37
Anticipated Discharge: Today
Subjective/Interval History
-
Date of Service: November 29, 2024
Patient was seen and examined. She reported feeling fine, denied any new symptoms or complaints.
Objective Data
-
Vital Signs:
Vital Signs
Temp Pulse Resp BP Pulse Ox
97.7 F 77 16 149/90 99
11/29/24 07:30 11/29/24 08:00 11/29/24 07:30 11/29/24 08:00 11/29/24 07:30
I&O
11/28/24 11/29/24 11/30/24
06:59 06:59 06:59
Intake Total 1140 / 1140 1440 / 1440
Balance 1140 / 1140 1440 / 1440
[2024-11-29 11:44] VITALS: BP 129/77
[2024-11-29 11:44] LABS: Glucose - Point of Care 102 mg/dl (70-99)
--- NOTE | 2024-11-29 13:11 | W.DCSUMMARY ---
Discharge Summary
Discharge Data
Date of Admission: 11/26/24
Date of Discharge: 11/29/24
Total time spent discharging patient (in min): 37
-
Pending Results: No
Hospital Course
78-year-old female with past medical history of hypertension, hyperlipidemia, diabetes mellitus, CKD 3 and anxiety/depression, presented with cat bite from her own cat 2 weeks (prior to presentation) status post 10-day course of Augmentin with
significant improvement but continued swelling and pain of the hand. She denied any fevers or chills. She did not have any leukocytosis. She went to [facility] the day before presentation, and had CT scan done which showed
edema along the dorsum of the hand without focal fluid collection; small rim-enhancing fluid collections around the distal fourth metacarpal head and proximity to the metacarpophalangeal joint; no acute osseous destructive process identified.
However, she left against medical advice from [facility] due to frustration waiting. Patient was started on Unasyn intravenous antibiotic and orthopedics was consulted. Orthopedics mentioned that they are not concerned about
septic joint, and no surgical intervention was indicated. Patient's symptoms improved significantly and she wanted to go home. Her systolic blood pressure was very high into the 190s mmHg, patient did report history strongly suggestive of history of
hypertensive emergency, therefore Amlodipine was added to patient's blood pressure regimen. Patient's blood pressure improved. She was doing well and stable for discharge home.
Discharge Plan
-
Patient Disposition: Home (Routine Discharge)
Discharge Diagnosis/Procedures: Left hand cellulitis due to cat bite status post cat bite on 11/13/24
Essential Hypertension
Hyperlipidemia
Type 2 Diabetes Mellitus
Chronic Kidney Disease Stage 3a
Anxiety/Depression
Left Upper Extremity CT Imaging (at [facility]) 11/25/24: Edema along the dorsum of the hand without focal fluid collection
Small rim-enhancing fluid collection surrounding the distal fourth metacarpophalangeal joint.
No acute osseous destructive process identified.
An infected joint effusion not excluded.
Diffuse wrist/carpal degenerative change.
Condition: Good
Diet: Low Fat, Low Cholesterol, Low Sodium, Diabetic, Carb Controlled and No added salt
Activity: As tolerated
Activity Restrictions/Additional Instructions:
-Continue your antibiotics for another ~6 days. Antibiotic therapy should be continued at least 1 to 2 days after your signs and symptoms have resolved -- you need to follow-up with your orthopedics and primary doctor in 3 to 5 days to see whether
you need a longer course of antibiotics.
-May perform gentle range of motion of left wrist and hand as tolerated.
-Continue with ice and elevation as well, as needed for the left wrist and hand.
-After discharge, recommended follow-up as outpatient 3-5 days for continued monitoring.
-If your symptoms do not improve or get worse, please return to the emergency room.
Instructions: High blood pressure emergencies, Medicines for high blood pressure, Amlodipine, Losartan, Low-sodium diet, DASH diet
Referrals:
Sena Avilez MD [Family Provider, Internal Medicine] - in less than 1 week
Dioni Howard MD [Active, Orthopedics] - in three to four days
Referral Note: Needs close hospital discharge follow-up
Additional Discharge Medication Instructions: Amlodipine is a new medication for your high blood pressure.
Amoxicillin-Clavulanate is an antibiotic.
Azithromycin stopped -- check with your primary doctor's office by 11/30/24 to see whether they want you to keep taking this medication.
Prescriptions:
New
amoxicillin-pot clavulanate 875-125 mg tablet
1 tab PO Q12H 6 Days Qty: 12 0RF
amlodipine 5 mg Tablet
5 mg PO BID Qty: 30 1RF
Continued
paroxetine HCl 20 MG tablet
20 mg PO DAILY
metformin 500 MG tablet
500 mg PO DAILY
cyanocobalamin (vitamin B-12) 1,000 mcg/mL Solution
1,000 mcg IM QMONTH Qty: 0
losartan 50 MG tablet
50 mg PO DAILY Qty: 0 0RF
atorvastatin [Lipitor] 20 mg Tablet
20 mg PO DAILY
aspirin 81 mg Tablet,Delayed Release (Dr/Ec)
81 mg PO DAILY
cholecalciferol (vitamin D3) [Vitamin D3] 25 mcg (1,000 unit) Tablet
25 mcg PO DAILY
PreserVision AREDS 2,148 mcg-113 mg-45 mg-17.4mg Tablet
1 tab PO BID
Discontinued
azithromycin 250 mg Tablet
0 mg PO .COMPLEX
Rx Instructions:
For 250 mg dose pack: take 500 mg today (day 1), then 250 mg for 4 days (days 2-5)
Discharge Orders:
Discharge Patient (As Directed); Ordered 11/29/24
Ordered By: Jesse Rangel
Discharge Date and Time
Discharge Date/Time: 11/29/24 14:27
Print Language: NORWEGIAN
[2024-11-29 13:49] VITALS: BP 140/82
--- NOTE | 2024-11-29 13:57 | CM ---
Home today no needs.
Plan; Home no needs.
== END 2024-11-29 14:27 | disposition home or self-care (01) | DRG 603 ==
LOC: 4 WEST ACU 15:53
PROVIDERS: Internal Medicine; Nurse Practitioner Family; Physician Assistant Medical; ADMITTING PHYSICIAN Hospitalist; ATTENDING PHYSICIAN Hospitalist; CONSULT PHYSICIAN Orthopaedic Surgery; EMERGENCY PHYSICIAN Student in an Organized Health Care Education/Training Program; FAMILY PHYSICIAN Internal Medicine
DX: L03.114 Cellulitis of left upper limb (principal); W55.01XD Bitten by cat, subsequent encounter; S60.572D Other superficial bite of hand of left hand, subsequent encounter; I12.9 Hypertensive chronic kidney disease with stage 1 through stage 4 chronic kidney disease, or unspecified chronic kidney disease; N18.31 Chronic kidney disease, stage 3a; E78.00 Pure hypercholesterolemia, unspecified; F41.9 Anxiety disorder, unspecified; F32.A Depression, unspecified; E11.22 Type 2 diabetes mellitus with diabetic chronic kidney disease; Z96.653 Presence of artificial knee joint, bilateral; Z96.611 Presence of right artificial shoulder joint; Z96.612 Presence of left artificial shoulder joint; Z87.891 Personal history of nicotine dependence; Z88.5 Allergy status to narcotic agent; Z79.82 Long term (current) use of aspirin; Z79.84 Long term (current) use of oral hypoglycemic drugs; G47.30 Sleep apnea, unspecified; M19.90 Unspecified osteoarthritis, unspecified site
CPT/HCPCS: 80048; 82962; 83036; 85025; 85027; 85652; 86140; 87070; 96365; 99284

== ENCOUNTER 2024-12-21 13:24 | Outpatient (RCR) | payer MEDICARE, OTHER, SELFPAY | END 2024-12-21 23:59 | disposition home or self-care (01) | LOC: ROT 13:24 | PROVIDERS: ATTENDING PHYSICIAN Orthopaedic Surgery Hand Surgery; FAMILY PHYSICIAN Internal Medicine | DX: L03.114 Cellulitis of left upper limb (principal); Z73.6 Limitation of activities due to disability; W55.03XD Scratched by cat, subsequent encounter | CPT/HCPCS: 97018; 97110; 97166; 97535 ==